=== PATIENT | female | born 1945 | race Caucasian/White ===

== ENCOUNTER 2023-09-18 13:58 | Outpatient (CLI) | payer MEDICARE | END 2023-09-18 13:59 | disposition home or self-care (01) | LOC: BICMAMMO 13:58 | PROVIDERS: ATTEND Family Medicine | DX: Z87.898 Personal history of other specified conditions (principal) | CPT/HCPCS: 77066; G0279 ==

== ENCOUNTER 2025-04-01 13:40 | Outpatient (CLI) | payer MEDICARE | END 2025-04-01 13:41 | disposition home or self-care (01) | LOC: SCSBT 13:40 | PROVIDERS: ATTEND Family Medicine | DX: Z78.0 Asymptomatic menopausal state (principal); M81.0 Age-related osteoporosis without current pathological fracture | CPT/HCPCS: 77080 ==